=== PATIENT | female | born 1950 | race Caucasian/White ===

== ENCOUNTER → 2016-05-23 | Outpatient (CLI) | payer OTHER ==
--- NOTE | 2016-05-23 10:25 | RAD ---
DATE: 05/23/2016 EXAM: DIGITAL DIAGNOSTIC RT HISTORY: Possible abnormality right breast. The history of left breast malignancy with mastectomy is noted COMPARISON: Note is made of the screening examination 11/12/2015 and the diagnostic examination 11/19/2015 This study was interpreted with the benefit of Computerized Aided Detection (CAD). FINDINGS: The breast parenchyma shows scattered fibroglandular densities. Breast parenchyma level B. The area of increased density in the right breast, compatible with summation artifact is similar to the screening examination 11/12/2015. A significant change in the appearance of the right breast relative to the screening examination is not seen IMPRESSION: Benign findings BI-RADS CATEGORY: 2 BENIGN FINDING(S) RECOMMENDED FOLLOW-UP: 12M 12 MONTH FOLLOW-UP PQRS compliance statement: Patient information was entered into a reminder system with a target due date 05/24/2027 for the next mammogram. Mammography is a sensitive method for finding small breast cancers, but it does not detect them all and is not a substitute for careful clinical examination. A negative mammogram does not negate a clinically suspicious finding and should not result in delay in biopsying a clinically suspicious abnormality. "Our facility is accredited by the [employer] Mammography Program."
== END | disposition home or self-care (01) ==
LOC: MAMMO 09:33
PROVIDERS: ATTEND Internal Medicine Hematology & Oncology
DX: R92.8 Other abnormal and inconclusive findings on diagnostic imaging of breast (principal)
CPT/HCPCS: G0206; 77065

== ENCOUNTER → 2016-06-19 | Outpatient (CLI) | payer OTHER ==
[2016-06-19 10:05] LABS: CALCIUM 8.9 mg/dL (8.5-10.1); CREATININE 0.7 mg/dL (0.6-1.0); GFR 84.5; POTASSIUM 3.9 mmol/L (3.5-5.1)
[2016-06-19 10:20] LABS: FREE T4 1.02 ng/dL (0.76-1.46)
[2016-06-19 17:13] LABS: CA 125 26.3 U/mL (0.0-38.1)
== END | disposition home or self-care (01) ==
LOC: LAB 09:12
PROVIDERS: ATTEND Internal Medicine
DX: Z13.818 Encounter for screening for other digestive system disorders (principal); E03.9 Hypothyroidism, unspecified; Z85.3 Personal history of malignant neoplasm of breast
CPT/HCPCS: 36415; 80048; 84439; 84443; 86304

== ENCOUNTER → 2016-08-09 | Outpatient (CLI) | payer OTHER | END | disposition home or self-care (01) | LOC: LAB 08:26 | PROVIDERS: ATTEND Internal Medicine | DX: E03.9 Hypothyroidism, unspecified (principal) | CPT/HCPCS: 36415; 84443; 84481; 86300 ==

== ENCOUNTER → 2016-10-04 | Outpatient (CLI) | payer OTHER ==
[2016-10-04 11:43] LABS: FREE T4 1.1 ng/dL (0.76-1.46)
== END | disposition home or self-care (01) ==
LOC: LAB 10:34
PROVIDERS: ATTEND Internal Medicine
DX: E03.9 Hypothyroidism, unspecified (principal)
CPT/HCPCS: 36415; 84439; 84443

== ENCOUNTER → 2017-06-19 | Outpatient (CLI) | payer OTHER ==
[2017-06-19 06:46] LABS: ADD MAN DIFF? NO
[2017-06-19 06:51] LABS: BASO # 0.1 x10^3/uL (0.0-0.2); BASO % 1 % (0-3); EOS # 0.2 x10^3/uL (0.0-0.7); EOS % 3 % (0-3); HEMATOCRIT 39.8 % (36.0-47.0); HEMOGLOBIN 13.6 g/dL (12.0-15.5); LYMPH # 2.2 x10^3/uL (1.0-4.8); LYMPH % 34 % (24-48); MEAN CORPUSCULAR HEMOGLOBIN 32 pg (25-35); MEAN CORPUSCULAR HGB CONC 34 g/dL (31-37); MEAN CORPUSCULAR VOLUME 94 fL (79-100); MONO # 0.6 x10^3/uL (0.0-1.1); MONO % 10 % (0-9); NEUT # 3.3 x10^3uL (1.8-7.7); NEUT % 52 % (31-73); PLATELET COUNT 261 x10^3/uL (140-400); RED BLOOD COUNT 4.21 x10^6/uL (3.50-5.40); RED CELL DISTRIBUTION WIDTH 13.7 % (11.5-14.5); WHITE BLOOD COUNT 6.3 x10^3/uL (4.0-11.0)
[2017-06-19 07:19] LABS: ALBUMIN 3.9 g/dL (3.4-5.0); ALBUMIN/GLOBULIN RATIO 1.2 (1.0-1.7); ALK PHOS 69 U/L (46-116); ALT (SGPT) 20 U/L (14-59); ANION GAP 6 (6-14); AST (SGOT) 19 U/L (15-37); BLOOD UREA NITROGEN 21 mg/dL (7-20); BUN/CREATININE RATIO 26 (6-20); CALCIUM 8.9 mg/dL (8.5-10.1); CARBON DIOXIDE 29 mmol/L (21-32); CHLORIDE 104 mmol/L (98-107); CREATININE 0.8 mg/dL (0.6-1.0); GFR 72.2; GLUCOSE 88 mg/dL (70-99); SODIUM 139 mmol/L (136-145); TOTAL BILIRUBIN 1.1 mg/dL (0.2-1.0); TOTAL PROTEIN 7.2 g/dL (6.4-8.2)
[2017-06-19 07:29] LABS: FREE T4 1.07 ng/dL (0.76-1.46)
[2017-06-19 07:29] LABS: THYROID STIM HORMONE (TSH) 1.171 uIU/mL (0.358-3.74)
[2017-06-19 17:21] LABS: CA 27.29 12.2 U/mL (0.0-38.6)
== END | disposition home or self-care (01) ==
LOC: LAB 06:31
DX: Z00.00 Encounter for general adult medical examination without abnormal findings (principal); E03.9 Hypothyroidism, unspecified
CPT/HCPCS: 36415; 80053; 84439; 84443; 85025; 86300

== ENCOUNTER → 2018-06-17 | Outpatient (CLI) | payer OTHER ==
--- NOTE | 2018-06-18 10:35 | RAD ---
DATE: 06/17/2018 EXAM: DIGITAL SCREEN RT W/CAD HISTORY: Routine screening. Left mastectomy. COMPARISON: 05/23/2016 and 06/13/2017 mammographic exams This study was interpreted with the benefit of Computerized Aided Detection (CAD). Breast Density: SCATTERED The breast parenchyma shows scattered fibroglandular densities. Breast parenchyma level B. FINDINGS: Asymmetry of the outer right breast has remained stable. No suspicious calcifications or masses. No distortion. IMPRESSION: No new process. BI-RADS CATEGORY: 2 BENIGN FINDING(S) RECOMMENDED FOLLOW-UP: 12M 12 MONTH FOLLOW-UP PQRS compliance statement: Patient information was entered into a reminder system with a target due date in one year for the next mammogram. Mammography is a sensitive method for finding small breast cancers, but it does not detect them all and is not a substitute for careful clinical examination. A negative mammogram does not negate a clinically suspicious finding and should not result in delay in biopsying a clinically suspicious abnormality. "Our facility is accredited by the [employer] Mammography [employer]."
== END | disposition home or self-care (01) ==
LOC: MAMMO 15:19
PROVIDERS: ATTEND Internal Medicine
DX: Z12.31 Encounter for screening mammogram for malignant neoplasm of breast (principal); N64.89 Other specified disorders of breast
CPT/HCPCS: 77067

== ENCOUNTER → 2018-11-12 | Outpatient (CLI) | payer OTHER, MEDICARE ==
[2018-11-12 08:10] LABS: ALBUMIN 3.9 g/dL (3.4-5.0); ALBUMIN/GLOBULIN RATIO 1.2 (1.0-1.7); CALCIUM 9.2 mg/dL (8.5-10.1); CREATININE 0.7 mg/dL (0.6-1.0); POTASSIUM 3.9 mmol/L (3.5-5.1); TOTAL PROTEIN 7.2 g/dL (6.4-8.2)
[2018-11-12 08:18] LABS: FREE T4 1.12 ng/dL (0.76-1.46); THYROID STIM HORMONE (TSH) 1.92 uIU/mL (0.358-3.74)
[2018-11-12 08:23] LABS: BASO % 1 % (0-3); CHOLESTEROL/HDL RATIO 3.2; EOS # 0.1 x10^3/uL (0.0-0.7); EOS % 2 % (0-3); HEMATOCRIT 39.5 % (36.0-47.0); HEMOGLOBIN 13.4 g/dL (12.0-15.5); LYMPH # 1.3 x10^3/uL (1.0-4.8); LYMPH % 27 % (24-48); MEAN CORPUSCULAR HEMOGLOBIN 32 pg (25-35); MEAN CORPUSCULAR HGB CONC 34 g/dL (31-37); MEAN CORPUSCULAR VOLUME 95 fL (79-100); MONO # 0.4 x10^3/uL (0.0-1.1); MONO % 9 % (0-9); NEUT % 61 % (31-73); PLATELET COUNT 262 x10^3/uL (140-400); RED BLOOD COUNT 4.16 x10^6/uL (3.50-5.40); RED CELL DISTRIBUTION WIDTH 13.5 % (11.5-14.5); WHITE BLOOD COUNT 4.8 x10^3/uL (4.0-11.0)
== END | disposition home or self-care (01) ==
LOC: LAB 06:05
PROVIDERS: ATTEND Internal Medicine
DX: E03.9 Hypothyroidism, unspecified (principal); Z85.3 Personal history of malignant neoplasm of breast
CPT/HCPCS: 36415; 80053; 80061; 84439; 84443; 85025; 86300

== ENCOUNTER → 2018-11-27 | Outpatient (CLI) | payer OTHER, MEDICARE | END | disposition home or self-care (01) | LOC: SPEC 15:03 | PROVIDERS: ATTEND Internal Medicine | DX: Z01.419 Encounter for gynecological examination (general) (routine) without abnormal findings (principal) | CPT/HCPCS: 88175 ==

== ENCOUNTER → 2018-12-11 | Outpatient (CLI) | payer OTHER, MEDICARE ==
--- NOTE | 2018-12-11 16:07 | KCIC ---
EXAM: Dual energy x-ray absorptiometry (DEXA). HISTORY: Post menopausal screening. TECHNIQUE: Dual energy x-ray absorptiometry of the lumbar spine and the left hip was performed. T-score of average bone mineral density based was calculated based on standard deviations above or below the expected young adult normal value. Diagnostic definitions were established by the World Health Organization. FINDINGS: The average bone mineral density associated with L1-L4 is 1.327 g/cm^2, corresponding with a T-score of 2.5. The average total bone mineral density associated with the left hip is 0.914 g/cm^2, corresponding with a T-score of -0.2. No comparison examinations are available. Refer to the worksheets for full detail. IMPRESSION: 1. Normal. Average bone mineral density yields a T-score of -1.0 or greater. Fracture risk is low. Electronically signed by: Dianna Georges MD (12/11/2018 4:04 PM) [facility]
== END | disposition home or self-care (01) ==
LOC: KCIC DEXA 15:24
PROVIDERS: ATTEND Internal Medicine
DX: Z13.820 Encounter for screening for osteoporosis (principal); Z78.0 Asymptomatic menopausal state
CPT/HCPCS: 77080

== ENCOUNTER → 2018-12-31 | Outpatient (CLI) | payer MEDICARE, OTHER ==
--- NOTE | 2018-12-31 10:11 | CARD ---
MR#: [id number] Date of Study: 12/31/2018 Ordering Physician: CELSO TOLENTINO, Referring Physician: Leia GUTIERREZ: Kyleigh Melo APPROVED REPORT EXAM: Two-dimensional and M-mode echocardiogram with Doppler and color Doppler. INDICATION Murmur 2D DIMENSIONS RVDd3.1 (2.9-3.5cm)Left Atrium(2D)3.6 (1.6-4.0cm) IVSd1.0 (0.7-1.1cm)Aortic Root(2D)2.2 (2.0-3.7cm) LVDd5.5 (3.9-5.9cm)LVOT Diameter2.2 (1.8-2.4cm) PWd0.9 (0.7-1.1cm)LVDs4.6 (2.5-4.0cm) FS (%) 16.5 %SV50.5 ml LVEF(%)34.2 (>50%) Aortic Valve AoV Peak Montana.118.9cm/sAoV VTI21.3cm AO Peak GR.5.7mmHgLVOT Peak [place].81.8cm/s AO Mean GR.3mmHgAVA (VMAX)2.65cm2 Mitral Valve MV E Qhmqthfb95.0cm/sMV E Peak Gr.4mmHg MV DECEL MGXS486kvNM A Jweerngk98.2cm/s MV E Mean Gr.2mmHgE/A Ratio0.8 Pulmonary Valve PV Peak Khehwzcv43.3cm/s Tricuspid Valve TR P. Nufhhoik524ko/sRAP VBDILASD3crNj TR Peak Gr.18mmHg Pulmonary Vein S1 Fyjoozze96.1cm/sD2 Zlmvcxca46.4cm/s LEFT VENTRICLE The left ventricle is normal size. There is normal left ventricular wall thickness. The systolic func tion is mildly to moderately impaired. The Ejection Fraction is 35-40%. Septal motion suggestive of conduction defect. Otherwise, there is global hypokinesis. Transmitral Doppler flow pattern is Grade I-abnormal relaxation pattern. RIGHT VENTRICLE The right ventricle is normal size. The right ventricular systolic function is normal. ATRIA The left atrium size is normal. The right atrium size is normal. The interatrial septum is borderline aneurysmal without flow across. AORTIC VALVE The aortic valve is thickened but opens well. Doppler and Color Flow revealed trace aortic regurgitat ion. There is no significant aortic valvular stenosis. MITRAL VALVE The mitral valve is thickened but opens well. There is no evidence of mitral valve prolapse. There is no mitral valve stenosis. Doppler and Color-flow revealed mild mitral regurgitation. TRICUSPID VALVE The tricuspid valve is normal in structure and function. Doppler and Color Flow revealed trace tricus pid regurgitation. There is no tricuspid valve stenosis. PULMONIC VALVE The pulmonic valve is not well visualized. Doppler and Color Flow revealed mild pulmonic valvular reg urgitation. There is no pulmonic valvular stenosis. GREAT VESSELS The aortic root is normal in size. The ascending aorta is normal in size. The IVC is normal in size and collapses >50% with inspiration. PERICARDIAL EFFUSION There is no pleural effusion. There is no evidence of significant pericardial effusion. Critical Notification Critical Value: No <Conclusion> The systolic function is mildly to moderately impaired. The Ejection Fraction is 35-40%. Septal motion suggestive of conduction defect. Otherwise, there is global hypokinesis. Doppler and Color Flow revealed mild pulmonic valvular regurgitation. Signed by : Erlin Santamaria, Electronically Approved : 12/31/2018 10:11:19
== END | disposition home or self-care (01) ==
LOC: ECHO 08:24
PROVIDERS: ATTEND Internal Medicine Cardiovascular Disease
DX: I08.8 Other rheumatic multiple valve diseases (principal)
CPT/HCPCS: 93306

== ENCOUNTER → 2019-12-02 | Outpatient (CLI) | payer MEDICARE ==
--- NOTE | 2019-12-02 16:48 | RAD ---
Examination: MAMMO LAITH SCREEN RT History: Left mastectomy. Routine screening. Comparison/Correlation: 06/17/2018, 06/13/2017, 05/23/2016, 11/12/2015 Findings: Digital screening CC and MLO images of the right breast were obtained. CAD was utilized. Scattered fibroglandular densities are present. No masses, calcifications in the interval compared to multiple prior exams. No distortion are evident. Impression: BI-RADS Category 1-negative. Annual screening mammography is recommended. Electronically signed by: Fran Kirk MD (12/02/2019 4:45 PM) [id number]
== END ==
LOC: MAMMO 14:13
PROVIDERS: ATTEND Internal Medicine
DX: Z12.31 Encounter for screening mammogram for malignant neoplasm of breast (principal); Z85.3 Personal history of malignant neoplasm of breast
CPT/HCPCS: 77061

== ENCOUNTER → 2020-02-12 | Outpatient (CLI) | payer MEDICARE ==
[~2020-02-12] MED LIST: ATOR40TA59 PO; BLACK CURRENT OIL PO; CARV3.1210 PO; GLUC-134 PO; LEVO88TA70 PO; LISI2.5T PO; MULT-650 PO; OMEG10005 PO; REGADENOSON 0.4 MG/5 ML DISP.SYRIN. IV ONE; SPIR25TA5 PO; TURM500C4 PO
--- NOTE | 2020-02-12 18:02 | CARD ---
MR#: [id number] Date of Study: 02/12/2020 Ordering Physician: CELSO TOLENTINO, Referring Physician: CELSO TOLENTINO Tech: Olesya Andre RDCS APPROVED REPORT EXAM: Two-dimensional and M-mode echocardiogram with Doppler and color Doppler. Other Information Quality : Good INDICATION Cardiomyopathy 2D DIMENSIONS RVDd1.7 (2.9-3.5cm)Left Atrium(2D)3.0 (1.6-4.0cm) IVSd0.7 (0.7-1.1cm)Aortic Root(2D)3.1 (2.0-3.7cm) LVDd6.7 (3.9-5.9cm)LVOT Diameter2.3 (1.8-2.4cm) PWd0.6 (0.7-1.1cm)LVDs5.7 (2.5-4.0cm) FS (%) 7.0 %SV73.8 ml M-Mode DIMENSIONS MV EPSS2.2 (<0.5cm) Aortic Valve AoV Peak Montana.119.6cm/sAoV VTI20.6cm AO Peak GR.5.7mmHgLVOT Peak [place].75.6cm/s AO Mean GR.3mmHgAVA (VMAX)2.51cm2 KELVIN (VTI)2.90cm2 Mitral Valve MV E Eamwltyz71.1cm/sMV DECEL KVBA735oq MV A Jhxnxeay38.1cm/sE/A Ratio0.8 Tricuspid Valve TR P. Qnsamjms687bb/sRAP THCWMNZB8otQk TR Peak Gr.33oqCrIULS77ryCz Pulmonary Vein S1 Ulnaktgg05.6cm/sD2 Xqcvlqgw01.3cm/s LEFT VENTRICLE The Left Ventricle is moderately dilated. There is normal left ventricular wall thickness. Left ventr icle systolic function is severely impaired. The Ejection Fraction is 10-15%. There is severe global hypokinesis of the left ventricle. Transmitral Doppler flow pattern is Grade I-abnormal relaxation pa ttern. RIGHT VENTRICLE The right ventricle is normal size. The right ventricular systolic function is normal. ATRIA The left atrium size is normal. The right atrium size is normal. The interatrial septum is intact wit h no evidence for an atrial septal defect or patent foramen ovale as noted on 2-D or Doppler imaging. AORTIC VALVE The aortic valve is calcified but opens well. Doppler and Color Flow revealed mild eccentric aortic r egurgitation. There is no significant aortic valvular stenosis. MITRAL VALVE The mitral valve is normal in structure and function. There is no evidence of mitral valve prolapse. There is no mitral valve stenosis. Doppler and Color-flow revealed trace mitral regurgitation. TRICUSPID VALVE The tricuspid valve is normal in structure and function. Doppler and Color Flow revealed trace tricus pid regurgitation. The PA pressure was estimated at 28 mmHg. There is no tricuspid valve stenosis. PULMONIC VALVE The pulmonic valve is not well visualized. Doppler and Color Flow revealed mild to moderate pulmonic valvular regurgitation. There is no pulmonic valvular stenosis. GREAT VESSELS The aortic root is normal in size. The ascending aorta is normal in size. The IVC is normal in size a nd collapses >50% with inspiration. PERICARDIAL EFFUSION There is no evidence of significant pericardial effusion. Critical Notification Critical Value: No <Conclusion> The Left Ventricle is moderately dilated. Left ventricle systolic function is severely impaired. The Ejection Fraction is 10-15%. There is severe global hypokinesis of the left ventricle. Doppler and Color Flow revealed mild eccentric aortic regurgitation. There is no significant aortic valvular stenosis. Doppler and Color-flow revealed trace mitral regurgitation. Doppler and Color Flow revealed trace tricuspid regurgitation. The PA pressure was estimated at 28 mmHg. Signed by : Carloz Luna MD Electronically Approved : 02/12/2020 18:01:20
--- NOTE | 2020-02-12 18:26 | RAD ---
MR#: [id number] Date of Study: 02/12/2020 Ordering Physician: CELSO TOLENTINO, Referring Physician: GAURI GUTIERREZ Tech: RT Óscar Woodall) (N) APPROVED REPORT Test Type: Pharmacological Stress Nurse/Tech: ANGELA MCKEON Test Indications: CARDIOMYOPATHY Cardiac History: SEE EMR Medications: SEE EMR Medical History: SEE EMR Resting Heart Rate: 73 bpm Resting Blood Pressure: 121/49mmHg Pretest Chest Pain: No chest pain Nurse/Tech Notes S1,S2, LUNGS CTA, DENIED CP OR SOA. Consent: The procedure was explained to the patient in lay terms. Informed consent was witnessed. Cristiano eout was entered into [employer]. History and Stress Test performed by RT Óscar Bergman) (N) Pharm. Details Pharmacologic stress testing was performed using 0.4mg per 5ml of regadenoson given intravenously ove r 7-10 seconds. Stress Symptoms PT C/O OF A BRIEF EPISODE OF SOA AND A FUNNY FEELING IN HER STOMACH. SYMPTOMS RESOLVED QUICKLY. VSS. PT DENIED CHEST PAIN. POST EXERCISE Reason for Termination: Infusion complete Max HR: 117 bpm Max Blood Pressure: 138/56mmHg Blood Pressure response to exercise: Normal blood pressure response during stress. Heart Rate response to exercise: WNL Chest Pain: No. INTERPRETATION Stress EKG Conclusion: The resting EKG shows a sinus rhythm, ST elevation in the septal leads, ST dep ression in the inferior and lateral leads. The stress EKG shows mild further ST segment changes that are not diagnostic of ischemia. Abnormal baseline EKG but no EKG evidence of stress-induced ischemia. Imaging Protocol IMAGE PROTOCOL: Rest Tc-99m/stress Tc-99m 1 day Rest: Stress: Viability: Radiopharm.Tc99m CddksrfuhEo81c Sestamibi Dose10.7mCi 32mCi Duration 15min. 10min. Img Date 02/12/2020 02/12/2020 Inj-Img Jjgw29vqh. 60min. Rest Admin Site:IV - Right AntecubitalAdministrator:RT Óscar Woodall)(N) Stress Admin Site: IV - Right AntecubitalAdministrator: Ernesto Torres, RT (R)(N) STRESS DATA End Diast. Vol.176.0mlAv. Heart Rate80.0bpm End Syst. Vol.105.0mlCO Index BSA0.0L/min Myocardial Tjab347.0gEject. Yhxlfhmm94.0% Stress Rates Pk. Fill Rate1.81EDV/secLVtime Pk. Fill 143.85msec Pk. Empty Rate2.54ESV/secLVtime Pk. Vhfox187.98msec / Pk. Fill0.85EDV/sec Stress Scores Regional WT2.00Summed WT33.00 Regional WM0.00Summed WM18.00 LV Perfusion The stress scans show a mild distal inferior apical defect. The rest scans show a mild apical defect. Nuclear imaging shows a largely fixed apical defect although the stress defect is mildly larger sugge sting periinfarct ischemia. No other areas of ischemia are identified. Wall Motion Left ventricular systolic function is significantly decreased with an ejection fraction of 32% and gl obal hypokinesis although more severe hypokinesis in the distal septal and apical region. LV Perf. Quant 17 Seg. SSS10.00 17 Seg. SRS9.00 17 Seg. SDS2.00 Stress Defect Extent (% LAD)17.50Rest Defect Extent (% LAD)14.40Rev. Defect Extent (% LAD)3.10 Stress Defect Extent (% LCX) 43.80Rest Defect Extent (% LCX)51.30Rev. Defect Extent (% LCX)1.30 Stress Defect Extent (% RCA)6.70Rest Defect Extent (% RCA)0.00Rev. Defect Extent (% RCA)4.40 Stress Defect Extent (% PAZ)21.30Rest Defect Extent (% PAZ)17.80Rev. Defect Extent (% PAZ)5.40 Conclusion 1. Severely abnormal resting EKG but no EKG evidence of stress-induced ischemia. 2. Nuclear imaging is consistent with an distal inferior apical infarct with rosendo-infarct ischemia. 3. Left ventricular systolic function is significantly decreased at 32% with global hypokinesis altho ugh increased hypokinesis in the distal septal/apical region. 4. Moderate risk Lexiscan nuclear stress test. Signed by : Carloz Luna MD Electronically Approved : 02/12/2020 18:26:37
== END ==
LOC: ECHO 07:39
PROVIDERS: ATTEND Internal Medicine Cardiovascular Disease
DX: I08.8 Other rheumatic multiple valve diseases (principal); I42.9 Cardiomyopathy, unspecified
CPT/HCPCS: 78452; 93017; 93306; A9500; J2785

== ENCOUNTER → 2020-02-19 | Outpatient (CLI) | payer MEDICARE ==
[2020-02-19 09:55] LABS: BASO % 1 % (0-3); EOS # 0.1 x10^3/uL (0.0-0.7); EOS % 1 % (0-3); HEMOGLOBIN 12.9 g/dL (12.0-15.5); LYMPH # 1.6 x10^3/uL (1.0-4.8); LYMPH % 27 % (24-48); MEAN CORPUSCULAR HEMOGLOBIN 32 pg (25-35); MEAN CORPUSCULAR HGB CONC 34 g/dL (31-37); MEAN CORPUSCULAR VOLUME 94 fL (79-100); MONO # 0.6 x10^3/uL (0.0-1.1); MONO % 10 % (0-9); NEUT # 3.6 x10^3/uL (1.8-7.7); NEUT % 61 % (31-73); PLATELET COUNT 245 x10^3/uL (140-400); RED BLOOD COUNT 4.04 x10^6/uL (3.50-5.40); RED CELL DISTRIBUTION WIDTH 13.4 % (11.5-14.5); WHITE BLOOD COUNT 5.9 x10^3/uL (4.0-11.0)
[2020-02-19 10:41] LABS: ALBUMIN/GLOBULIN RATIO 1.2 (1.0-1.7); CALCIUM 9.5 mg/dL (8.5-10.1); CREATININE 0.8 mg/dL (0.6-1.0); GFR 71.5; POTASSIUM 4.1 mmol/L (3.5-5.1); TOTAL BILIRUBIN 1.2 mg/dL (0.2-1.0); TOTAL PROTEIN 7.4 g/dL (6.4-8.2)
[2020-02-19 10:42] LABS: CHOLESTEROL/HDL RATIO 1.9
[2020-02-19 10:43] LABS: FREE T4 1.27 ng/dL (0.76-1.46); THYROID STIM HORMONE (TSH) 1.873 uIU/mL (0.358-3.74)
== END ==
LOC: LAB 09:18
PROVIDERS: ATTEND Internal Medicine
DX: Z00.00 Encounter for general adult medical examination without abnormal findings (principal); E03.9 Hypothyroidism, unspecified; Z85.3 Personal history of malignant neoplasm of breast
CPT/HCPCS: 36415; 80053; 80061; 84439; 84443; 85025; 86300

== ENCOUNTER → 2020-02-25 | Outpatient (CLI) | payer MEDICARE ==
[~2020-02-25] MED LIST changes: -REGADENOSON 0.4 MG/5 ML DISP.SYRIN. IV ONE
== END ==
LOC: LAB 11:31
PROVIDERS: ATTEND Internal Medicine Cardiovascular Disease
DX: Z01.812 Encounter for preprocedural laboratory examination (principal); I42.9 Cardiomyopathy, unspecified; Z20.828 Contact with and (suspected) exposure to other viral communicable diseases
CPT/HCPCS: U0003

== ENCOUNTER 2020-02-27 06:54 | Outpatient (CLI) | payer MEDICARE ==
[2020-02-27] VITALS (10 sets, daily range): BP systolic 112–147; BP diastolic 47–65
[~2020-02-27] VITALS: Ht 172.7 cm; Wt 56.7 kg
[2020-02-27] MEDS ORDERED: IODIXANOL 320 MG/ML 100 ML VIAL. ONE (07:33)
[2020-02-27] MEDS ORDERED: LIDOCAINE 1% PF 2 ML VIAL. ONE (07:34)
[2020-02-27 07:35] LABS: HEMATOCRIT 39.4 % (36.0-47.0); HEMOGLOBIN 13.2 g/dL (12.0-15.5); RED BLOOD COUNT 4.21 x10^6/uL (3.50-5.40); RED CELL DISTRIBUTION WIDTH 13.2 % (11.5-14.5); WHITE BLOOD COUNT 4.3 x10^3/uL (4.0-11.0)
[2020-02-27 07:41] LABS: CREATININE 0.8 mg/dL (0.6-1.0); GFR 71.5; POTASSIUM 3.9 mmol/L (3.5-5.1)
[2020-02-27 07:50] LABS: PROTHROMBIN TIME PATIENT 12.8 SEC (11.7-14.0)
[2020-02-27] MEDS ORDERED: ATOR40TA59 PO (08:14)
[2020-02-27] MEDS ORDERED: OMEG10005 PO (08:14)
[2020-02-27] MEDS ORDERED: CARV3.1210 PO (08:14)
[2020-02-27] MEDS ORDERED: BLACK CURRENT OIL PO (08:14)
[2020-02-27] MEDS ORDERED: MULT-650 PO (08:14)
[2020-02-27] MEDS ORDERED: LISI2.5T PO (08:14)
[2020-02-27] MEDS ORDERED: NITROGLYCERIN 200 MCG/2 ML SYRINGE FOR CATH/VASC LAB. ONE (08:14)
[2020-02-27] MEDS ORDERED: VERAPAMIL 5 MG/2 ML VIAL. ONE (08:14)
[2020-02-27] MEDS ORDERED: GLUC-134 PO (08:14)
[2020-02-27] MEDS ORDERED: TURM500C4 PO (08:14)
[2020-02-27] MEDS ORDERED: SPIR25TA5 PO (08:14)
[2020-02-27] MEDS ORDERED: MIDAZOLAM HCL/PF 5 MG/5 ML VIAL. ONE (08:14)
[2020-02-27] MEDS ORDERED: LEVO88TA70 PO (08:14)
[2020-02-27] MEDS ORDERED: fentaNYL PF VIAL 100 MCG/2 ML VIAL ONE (08:14)
[2020-02-27] MEDS ORDERED: HEPARIN for IV BOLUS 10,000 UNIT/10 ML VIAL. ONE (08:14)
[2020-02-27] MEDS ORDERED: ONDANSETRON PF 4 MG/2 ML VIAL. ONE (08:54)
--- NOTE | 2020-02-27 08:56 | PDOC ---
MODERATE SEDATION ASSESSMENT RISKS/ALTERNATIVES Risks/Alternatives Risks and alternatives of this type of sedation and procedure discussed with: RISK/ALTERNATIVES: Patient H & P ON CHART H & P H & P on chart and reviewed for co-morbid conditions and appropriate labs. H&P ON CHART: Yes STATUS PREG STATUS ASSESSED: N/A MEDS/ALLERGIES REVIEWED Meds/Allergies Reviewed Medications and Allergies including time and route of recently administered narcotics and sedatives. MEDS/ALLERGIES REVIEWED: Yes ASA RATING ASA RATING: II AIRWAY ASSESSMENT Airway Assessment Airway patency, oral function limitations, presence of caps, crowns, dentures, partials, and ability to extend neck assessed. AIRWAY ASSESSMENT: Yes MALLAMPATI SCORE MALLAMPATI SCORE: II PRE-SEDATION ASSESSMENT PRE-SEDATION ASSESSMENT: Yes CELSO TOLENTINO MD Feb 27, 2020 08:56
[2020-02-27] MEDS ORDERED: fentaNYL PF VIAL 100 MCG/2 ML VIAL IV ONE (09:00)
[2020-02-27] MEDS ORDERED: LIDOCAINE 1% PF 2 ML VIAL. INJ ONE (09:00)
[2020-02-27] MEDS ORDERED: MIDAZOLAM HCL/PF 5 MG/5 ML VIAL. IV ONE (09:00)
[2020-02-27] MEDS ORDERED: VERAPAMIL 5 MG/2 ML VIAL. IART ONE (09:00)
[2020-02-27] MEDS ORDERED: HEPARIN for IV BOLUS 10,000 UNIT/10 ML VIAL. IART ONE (09:00)
[2020-02-27] MEDS ORDERED: NITROGLYCERIN 200 MCG/2 ML SYRINGE FOR CATH/VASC LAB. IART ONE (09:00)
[2020-02-27] MEDS ORDERED: ONDANSETRON PF 4 MG/2 ML VIAL. IVP ONE (09:00)
[2020-02-27] MEDS ORDERED: IODIXANOL 320 MG/ML 100 ML VIAL. IART ONE (09:00)
[2020-02-27] MEDS ORDERED: CONTRAST GIVEN. MC PRN (09:15)
[2020-02-27] MEDS ORDERED: IV 1/2 NORMAL SALINE 1,000 ML IV SCH (09:30)
--- NOTE | 2020-02-27 09:40 | CARD ---
MR#: [id number] Date of Study: 02/27/2020 Ordering Physician: CELSO REID, Referring Physician: CELSO REID, Tech: RT Jeanie (R) APPROVED REPORT Technologist: RT Jeanie (R) Nurse: Deepa Gong R.N. Procedure(s) performed: Left heart catheterization, selective coronary angiography and left ventricul ography via right transradial approach FL TIME: 2.3 MINS DOSE: 16 GYCM2 CONTRAST: 71 ML MODERATE SEDATION: 36 MINS Estimated Blood loss: 5 ml INDICATION The indication(s) include : Chronic systolic heart failure, cardiomyopathy and abnormal stress test. [facility] Clinical Frailty Scale [facility] Clinical Frailty Scale: Mildly Frail Heart Failure Heart Failure: Yes If Yes, Newly Diagnosed: No If Yes, HF Type: Systolic If Yes, NYHA Class: Class II PROCEDURE NARRATIVE After explaining the risks, benefits and alternative options, informed consent was obtained from alexei ent. Patient was brought to the cardiac [facility] and right wrist was prepped and draped in the usual fashion after confirming a positive modified Jeovanny's test. Arterial access was obtained in the righ t radial artery and a 6 Cambodian sheath was inserted. 6 Cambodian Franklin catheter was used to perform nikolai ective angiography of the left and right coronary arteries. 6 Cambodian pigtail catheter was used to pe rform left ventriculography. Patient tolerated the procedure well. Hemostasis was achieved using TR band. There were no immediate complications. The following findings were noted. FINDINGS 1. Hemodynamics: Left ventricular end-diastolic pressure of 10 mmHg. No pullback gradient across th e aortic valve. 2. Left ventriculography: Severe left ventricular systolic dysfunction with ejection fraction estima joanne at 15 to 20%. No significant mitral regurgitation seen. 3. Coronary angiography: a. The left main coronary artery arose from the left sinus of Valsalva, gave rise to the left anteri or descending and left circumflex arteries and did not show any significant stenosis. b. The left anterior descending artery did not show any significant stenosis. c. The left circumflex artery did not show any significant stenosis. d. The right coronary artery was a large and dominant vessel arising from the right sinus of Valsalv a that did not show any significant stenosis. Conclusion 1. No significant coronary artery disease 2. Severe left ventricular systolic dysfunction with ejection fraction estimated at 15 to 20% Recommendations Optimization of medical therapy for severe nonischemic cardiomyopathy. Repeat 2D echo in 3 months to evaluate the need for AICD implantation for primary prevention of sudde n cardiac . Signed by : Celso Reid, Electronically Approved : 02/27/2020 09:40:07
--- NOTE | 2020-02-27 11:43 | NUR ---
Discharge Note: [facility] Discharge instructions and discharge home medications reviewed with Patient and a copy given. All questions have been answered and understanding verbalized. The following instructions and handouts were given: radial site care and adult moderate sedation Discontinued lines and drains: Peripheral IV intact. Patient discharged to Home or Self Care withSignificant Othervia Wheelchair
== END 2020-02-27 12:05 | disposition home or self-care (01) ==
LOC: CCL 06:54
PROVIDERS: ATTEND Internal Medicine Cardiovascular Disease
DX: I50.22 Chronic systolic (congestive) heart failure (principal); I42.9 Cardiomyopathy, unspecified; R94.39 Abnormal result of other cardiovascular function study; E78.00 Pure hypercholesterolemia, unspecified; E03.9 Hypothyroidism, unspecified; Z85.3 Personal history of malignant neoplasm of breast; Z79.899 Other long term (current) drug therapy; Z98.890 Other specified postprocedural states; Z88.6 Allergy status to analgesic agent
CPT/HCPCS: 36415; 80048; 85027; 85610; 93458; 99152; 99153; C1769; C1892; J1644; J2250; J2405; J3010; J3490; Q9967

== ENCOUNTER → 2020-03-30 | Outpatient (CLI) | payer MEDICARE ==
[2020-02-27 11:30] VITALS: BP 144/65
--- NOTE | 2020-03-30 21:17 | RAD ---
MR#: [id number] Date of Study: 03/30/2020 Ordering Physician: CELSO TOLENTINO, Referring Physician: CELSO TOLENTINO, Tech: Echo Galvez, KENZIE, RVT, RTR APPROVED REPORT Patient Location: OUT-PATIENT Indications Non-healing Ulcer: Bilaterally PAD Sores on tips of toes x 1 month VELOCITY AND DOPPLER WAVEFORM ANALYSIS RIGHT cm/secWaveformSeverity LEFT cm/secWaveform Severity pCFA 114.8pCFA 92.5 dCFA 89.7dCFA 66.9 Prof Fem Art. 65.1Prof Fem Art. 85.9 Fem Art Prox. 103.4Fem Art Prox. 117.8 Fem Art Mid. 108.2Fem Art Mid. 97.8 Fem Art Dist. 88.4Fem Art Dist. 91.7 Pop Art(AK) 62.3Pop Art(AK) 87.6 Pop Art(BK) 54.0Pop Art(BK) 68.6 MATERIALS SUPERVISOR Prox. 48.8PTA Prox. 42.6 MATERIALS SUPERVISOR Dist. 84.2PTA Dist. 57.3 Per Art Prox. 57.8Per Art Prox. 64.7 PEDRO Prox. 72.0ATA Prox. 61.5 DPA 48DPA 54 Findings Grayscale images of the bilateral lower extremity arterial vessels demonstrate mild diffuse irregular ities. No significant stenosis is noted with three-vessel runoff below the knee. Critical Notification Critical Value: No <Conclusion> 1. No significant lower extremity arterial disease with three-vessel runoff bilaterally Signed by : Erlin Santamaria, Electronically Approved : 03/30/2020 21:16:43
== END ==
LOC: US 12:16
PROVIDERS: ATTEND Internal Medicine Cardiovascular Disease
DX: I73.9 Peripheral vascular disease, unspecified (principal)
CPT/HCPCS: 93925

== ENCOUNTER → 2020-07-08 | Outpatient (CLI) | payer MEDICARE ==
[2020-02-27 11:30] VITALS: BP 144/65
--- NOTE | 2020-07-08 17:15 | CARD ---
MR#: [id number] Date of Study: 07/08/2020 Ordering Physician: CELSO TOLENTINO, Referring Physician: Leia GUTIERREZ: Trang Mcneill [facility] APPROVED REPORT EXAM: Two-dimensional and M-mode echocardiogram with Doppler and color Doppler. Other Information Quality : GoodHR: 67bpm Rhythm : NSR INDICATION Cardiomyopathy 2D DIMENSIONS RVDd1.9 (2.9-3.5cm)Left Atrium(2D)3.5 (1.6-4.0cm) IVSd0.8 (0.7-1.1cm)Aortic Root(2D)3.1 (2.0-3.7cm) LVDd5.6 (3.9-5.9cm)LVOT Diameter2.3 (1.8-2.4cm) PWd0.7 (0.7-1.1cm)LVDs5.1 (2.5-4.0cm) FS (%) 8.6 %SV29.1 ml Aortic Valve AoV Peak [place].113.8cm/Spencer Peak GR.5.2mmHg LVOT Peak [place].89.9cm/sAVA (VMAX)3.31cm2 AI P 1/2 Dlqa921wi Mitral Valve MV E Fiayvtaa81.8cm/sMV DECEL XUAD196hv MV A Oyfsvqlb66.9cm/sE/A Ratio0.9 Pulmonary Valve PV Peak Wdecyuuo48.9cm/s Tricuspid Valve TR P. Xqsewsvq293gm/sRAP ZHYXTPUE5eyTx TR Peak Gr.55kdUgBVDX15ceFw Pulmonary Vein S1 Rnsdrzeg65.4cm/sD2 Wuecsdkd83.1cm/s PVa tbjhijbz124bqwt LEFT VENTRICLE The Left Ventricle is mildly dilated. There is normal left ventricular wall thickness. The ejection f raction is severely impaired. Left ventricular systolic function is estimated at 20%. There is global hypokinesis of the left ventricle. Tissue Doppler imaging reveals abnormal left ventricular diastoli c dysfunction. No left ventricle thrombus noted on this study. There is no ventricular septal defect visualized. There is no left ventricular aneurysm. There is no mass noted in the left ventricle. RIGHT VENTRICLE The right ventricle is normal size. There is normal right ventricular wall thickness. The right ventr icular systolic function is normal. ATRIA The left atrium size is normal. The right atrium size is normal. The interatrial septum is intact wit h no evidence for an atrial septal defect or patent foramen ovale as noted on 2-D or Doppler imaging. AORTIC VALVE The aortic valve is normal in structure and function. Doppler and Color Flow revealed no significant aortic regurgitation. There is no significant aortic valvular stenosis. There is no aortic valvular v egetation. MITRAL VALVE The mitral valve is normal in structure and function. There is no evidence of mitral valve prolapse. There is no mitral valve stenosis. Doppler and Color-flow revealed mild mitral regurgitation. TRICUSPID VALVE The tricuspid valve is normal in structure and function. Doppler and Color Flow revealed mild tricusp id regurgitation. PAP 30 mmHg. There is no tricuspid valve prolapse or vegetation. There is no tricus pid valve stenosis. PULMONIC VALVE The pulmonary valve is normal in structure and function. GREAT VESSELS The aortic root is normal in size. The ascending aorta is normal in size. The pulmonary artery is nor mal. The IVC is normal in size and collapses >50% with inspiration. PERICARDIAL EFFUSION There is no pleural effusion. The pericardium appears normal. Critical Notification Critical Value: No <Conclusion> The Left Ventricle is mildly dilated. The ejection fraction is severely impaired. Left ventricular systolic function is estimated at 20%. There is global hypokinesis of the left ventricle. Doppler and Color Flow revealed no significant aortic regurgitation. There is no significant aortic valvular stenosis. Doppler and Color-flow revealed mild mitral regurgitation. Doppler and Color Flow revealed mild tricuspid regurgitation. PAP 30 mmHg. Signed by : Carloz Luna MD Electronically Approved : 07/08/2020 17:15:11
== END ==
LOC: ECHO 09:41
PROVIDERS: ATTEND Internal Medicine Cardiovascular Disease
DX: I08.1 Rheumatic disorders of both mitral and tricuspid valves (principal)
CPT/HCPCS: 93306

== ENCOUNTER → 2020-12-23 | Outpatient (CLI) | payer MEDICARE ==
[2020-09-04 15:00] VITALS: BP 142/63
[~2020-12-23] MED LIST changes: +AMLO2.5T5 PO; +ASPI-630 PO; -LISI2.5T PO; +LISI2.5T12 PO; +SACU1TAB PO
--- NOTE | 2020-12-23 17:34 | RAD ---
Right digital screening 2-D and 3-D (digital breast tomosynthesis) mammogram: Reason for examination: Routine screening. The patient has a history of left breast carcinoma with ma stectomy 1996. Comparison: Mammogram from 12/02/2019 and the 06/13/2017. Interpretation was made with the benefit of CAD. FINDINGS: Breast density: Category B. There are scattered areas of fibroglandular density. No suspicious breast mass, malignant appearing calcifications, or architectural distortion is seen. IMPRESSION: No evidence of malignancy. Assessment: BI-RADS 1. Negative. Recommendation: Routine screening mammograms. The patient will receive a letter with the results in the mail. Patient information will be entered i nto the mammography reminder system with a target recall date for the next mammogram. A reminder sai er will be generated. Electronically signed by: Sintia Cardona MD (12/23/2020 5:32 PM) [id number]
== END ==
LOC: MAMMO 08:45
PROVIDERS: ATTEND Internal Medicine
DX: Z12.31 Encounter for screening mammogram for malignant neoplasm of breast (principal)
CPT/HCPCS: 77063; 77067